=== PATIENT | male | born 1960 | race Caucasian/White ===

== ENCOUNTER 2018-11-18 09:48 | Inpatient (IN) ==
[~2018-11-18 09:48] MED LIST: ceFAZolin 1,000 MG, Sodium Chloride IRRigation 1,000 ML IR ONE
[2018-11-18] MEDS ORDERED: *HR* Remifentanil 2 MG VIAL IVP ONE (10:18)
[2018-11-18] MEDS ORDERED: Ondansetron 4 MG/2 ML VIAL ONE (10:18)
[2018-11-18] MEDS ORDERED: *HR* Succinylcholine 200 MG/10 ML VIAL IVP ONE (10:18)
[2018-11-18] MEDS ORDERED: *HR* Propofol 200 MG/20 ML VIAL IVP ONE (10:18)
[2018-11-18] MEDS ORDERED: *HR* FentaNYL (PF) 100 MCG/2 ML VIAL ONE (10:18)
[2018-11-18] MEDS ORDERED: Lidocaine -MPF 2% 2 ML VIAL ONE (10:18)
[2018-11-18] MEDS ORDERED: *HR* Midazolam HCl 2 MG/2 ML VIAL ONE (10:18)
[2018-11-18] MEDS ORDERED: Dexamethasone 4 MG/ML VIAL ONE (10:18)
[2018-11-18] MEDS ORDERED: *HR* Phenylephrine 10 MG/ML VIAL ONE (10:19)
[2018-11-18] MEDS ORDERED: *HR* Heparin 5,000 UNIT/ML VIAL ONE (10:19)
[2018-11-18] MEDS ORDERED: EPHEDrine 50 MG/ML VIAL ONE (10:19)
--- NOTE | 2018-11-18 10:35 | Anesthesia Evaluation PreOp ---
Date of Encounter: 11/18/18 Time of Encounter: 10:33 - Past History Planned Operation: R CEA Cardiac History: [place] (1996), HTN, Hyperlipidemia, Arrhythmia (a fib s/p multiple ablations), Cardiac Surgery (1996) Pulmonary History: JEB Dx (no diagnosed but stop-bang 6 (High risk for JEB)) SINGER BACK TENDER History: Other (karina carotid stenosis; no hx CVA; s/p L CEA) Other Medical History: Diabetes Type II (no insulin), Other (BMI 37) Anesthesia History: No Prior Anesthetic Complications Alcohol Use: none Drug use: none Medications and Allergies Aspirin [Lo-Dose Aspirin EC] 81 mg PO DAILY 10/31/18 [History] Cholecalciferol (D-3) [Vitamin D] 1,000 unit PO DAILY 10/31/18 [History] Flaxseed Oil [[place]-3 Flaxseed Oil] 1,000 mg PO TID 10/31/18 [History] Furosemide [Lasix] 20 mg PO DAILY 10/31/18 [History] Glimepiride [Amaryl] 4 mg PO DAILY 10/31/18 [History] Niacin [Niacor] 500 mg PO DAILY 10/31/18 [History] Pravastatin Sodium [Pravachol] 40 mg PO DAILY 10/31/18 [History] Spironolactone [Aldactone] 12.5 mg PO DAILY 10/31/18 [History] Vitamin E Acetate [Vitamin E] 400 unit PO DAILY 10/31/18 [History] Warfarin Sodium [Coumadin] 6 mg PO SUMOTUFRSA 10/31/18 [History] Carvedilol [Coreg] 25 mg PO BID 11/04/18 [History] Cinnamon Bark [Cinnamon] 500 mg PO DAILY 11/04/18 [History] Liraglutide [Victoza 2-Ruslan] 1.8 mg SQ DAILY 11/04/18 [History] Lisinopril/Hydrochlorothiazide [Zestoretic 20-12.5 mg Tablet] 1 tab PO DAILY 11/04/18 [History] Metformin HCl [Metformin HCl ER] 500 mg PO DAILY 11/04/18 [History] Multivitamin [One-Daily Multi-Vitamin] 1 tab PO DAILY 11/04/18 [History] Warfarin Sodium [Coumadin] 9 mg PO TH 11/04/18 [History] Allergy/AdvReac Type Severity Reaction Status Date / Time No Known Allergies Allergy Verified 11/04/18 13:04 - Meds/Allergy Pre-op Review Medications Reviewed: Yes Allergies Reviewed: Yes Beta Blockers on Current Med List: Yes If Beta Blockers taken, Date/Time (Last Dose taken): 11-18-18 coreg 8:30 Anesthesia Results - Labs Laboratory Tests 10/31/18 10/31/18 11/05/18 09:15 15:52 03:43 WBC 10.8 Hgb 11.3 L Hct 35.3 L Plt Count 182 PT 14.0 H INR 1.2 Sodium Potassium Chloride Carbon Dioxide BUN Creatinine Est GFR ( Amer) Est GFR (Non-Af Amer) BUN/Creatinine Ratio Glucose POC Glucose Est Mean Plasma Glucose 143 Hemoglobin A1c 6.6 H Calculated Osmolality 11/05/18 11/05/18 03:43 11:43 WBC Hgb Hct Plt Count PT INR Sodium 135 L Potassium 4.4 Chloride 103 Carbon Dioxide 22 L BUN 21 H Creatinine 1.11 Est GFR ( Amer) > 60 Est GFR (Non-Af Amer) > 60 BUN/Creatinine Ratio 19 Glucose 147 H POC Glucose 208 H Est Mean Plasma Glucose Hemoglobin A1c Calculated Osmolality 286 - Imaging EKG: report reviewed, image reviewed (Atrial fibrillation Ventricular premature complex Borderline low voltage, extremity leads Nonspecific T abnormalities, lateral leads) Anesthesia Exam Last Vital Signs Temp 97.6 F 11/18/18 10:10 Pulse 87 11/18/18 10:10 Resp 18 11/18/18 10:10 BP 129/79 11/18/18 10:10 Pulse Ox 95 11/18/18 10:10 Weight: 112 kg NPO (# of Hours): > 8 hrs - HEENT Pupil (Motor): Pupils equal, EOMI Mallampati: II Teeth: Normal Oral Opening: Greater than 3 - SINGER BACK TENDER LOC: Oriented - Cardiac Rhythm: Regular Murmur: None - Pulmonary Breath Sounds: bilateral Clear Respiratory Effort: Symmetrical Anesthesia Assess/Plan ASA Score: 3 Level of consciousness: Cooperative Anesthetic Plan: General Monitoring Plan: Standard Monitors, A-Line Recovery Plan: PACU
[2018-11-18] MEDS ORDERED: CeFAZolin Syr 2,000MG/20 ML 2,000 MG/20 ML SYRINGE IVPB ONE (10:37)
[2018-11-18] MEDS: Ringers Solution, Lactated 1,000 ML IVC SCH ×2 (10:39→13:10)
--- NOTE | 2018-11-18 10:49 | History & Physical Report ---
Date of Encounter: 11/18/18 Time of Encounter: 10:48 24 Hour HP Update - Instructions Instructions: If the History and Physical is less than 30 days old and was completed prior to A.M. admission and or procedure and has NOT been updated on calendar day of procedure please complete this update prior to performing procedure. - Update Patient reports changes in Medical Condition: No Changes in examination, assessment, or condition: No Changes in Medication: No Preop tests/diagnostics Reviewed: Yes Surgery Remains Indicated: Yes Consent for Planned Operative Procedure(s) Verified: Yes - Pre-Operative Checklist Preoperative Checklist Indicated: Yes Prophylactic Antibiotic Ordered: Yes Home Medications Include Beta Dagoberto: Yes Beta Dagoberto Taken Today (Day of Surgery): Yes Beta Dagoberto Taken Yesterday (Day Prior to Surgery): Yes Is VTE Prophylaxis Indicated?: Yes
[2018-11-18] MEDS ORDERED: Heparin 1,000 UNITS/500 mL 1,500 ML ONE (10:52)
[2018-11-18] MEDS ORDERED: Bupivacaine/EPI 1:200k 0.5%PF 10 ML VIAL ONE (10:53)
[2018-11-18] MEDS ORDERED: Lidocaine 1% 20 ML MDV ONE (10:53)
[2018-11-18] MEDS ORDERED: *HR* Labetalol 100 MG/20 ML MDV ONE (10:54)
[2018-11-18] MEDS ORDERED: NiCARdipine 2.5 MG/10 ML Syringe IVPB ONE (10:54)
[2018-11-18] MEDS ORDERED: Albuterol 2.5 MG/3 ML NEBULIZER IH ONE (10:56)
[2018-11-18] MEDS ORDERED: *HR* OxyCODONE Immed Rel 5 MG TABLET PO PRN ×2 (10:56→15:28)
[2018-11-18] MEDS ORDERED: *HR* Labetalol 20 MG/4 ML SYRINGE IVP PRN (10:56)
[2018-11-18] MEDS ORDERED: *HR* Midazolam HCl 5 MG/ML VIAL ONE (10:59)
[2018-11-18] MEDS ORDERED: Lidocaine -MPF 1% 5 ML AMPUL ONE (11:02)
[2018-11-18] MEDS ORDERED: *HR* PHENYLEPHRINE 1,000 MCG/10 ML SYRINGE IVP ONE ×2 (11:10→14:06)
[2018-11-18] MEDS ORDERED: *HR* Vasopressin 20 UNIT/ML VIAL ONE (11:34)
--- NOTE | 2018-11-18 11:44 | Anesthesia Procedures ---
Date of Encounter: 11/18/18 Time of Encounter: 11:00 Procedures: Anesthesia - Arterial Line Consent obtained: written consent Time out performed: Yes Sedation: Versed (mg): 2 Sedation: Fentanyl (mcg): 100 Supplemental Oxygen via Nasal Cannula (L/min): 2 Local Anesthetic: Lidocaine 1% Amount of Anesthetic used (mls): 1 Size (Gauge): 20 Length (inches): 1 3/4 Technique Used: sterile prep, guide wire technique Post-Procedure: line taped into place, dry sterile dressing placed Patient tolerated procedure: well, no complications Complications: none Site: Radial R Vitals: Last Vital Signs Temp 97.6 F 11/18/18 10:10 Pulse 83 11/18/18 11:05 Resp 16 11/18/18 11:05 BP 131/92 11/18/18 11:05 Pulse Ox 97 11/18/18 11:05
--- NOTE | 2018-11-18 14:20 | Operative Note ---
Date of procedure: 11/18/18 Pre-op diagnosis: right carotid stenosis Post-op diagnosis: same Procedure: right carotid endarterectomy with 8 Fr shunt and bovine patch angioplasty Complications: 0 Anesthesia: GETA Surgeon: Marshall García Was there an assistant manager/embalmer present: No Estimated blood loss (cc): 100 Specimen: 0 Condition: stable Disposition: PACU Procedure in Detail: History Jose M Fam is a 58-year-old white male who was identified as having abnormal carotid duplex scan. This then led to a carotid angiogram. The angiogram demonstrated high-grade bilateral carotid stenoses. The patient had undergone a left carotid endarterectomy approximately 2 weeks ago. He now returns for correction of the severe lesion on the right side. Procedure After informed consent was obtained the patient was taken to the operating room. General endotracheal anesthesia was established under arterial line pressure guide. The right neck was then sterilely prepped and draped. An oblique incision was then made parallel to the anterior border of the sternocl eidomastoid muscle. Dissection was carried down to the carotid sheath. Controls obtained of the arterial structures of the carotid sheath. The hypoglossal nerve was identified and preserved during this dissection. 5000 units heparin were then administered intravenously. After 3 minute delay the vessels were clamped with the internal carotid artery clamped first. Using an 11 blade knife and Rodriguez scissors the artery was opened at the distal common carotid and proximal internal carotid levels. An 8-Malay shunt was then inserted atraumatically. Patency of the shunt was confirmed by the severe intraoperative Doppler. Evaluation of the plaque revealed a very irregular plaque with multiple areas of ulceration. In addition there was chronic thrombus present. The thrombus was adherent and there is no loose material. The endarterectomy was then begun at the distal common carotid artery. Dissection was then made circumferentially. The dissection plane was then carried proximally and distally. The orifice of the external carotid artery was also endarterectomized. The endpoint on the internal carotid artery was smooth and no tacking sutures were necessary. After inspection of the bed of the vessel a bovine pericardial patch angioplasty was then performed using 6-0 Prolene sutures. Leaving a small space open on the suture line the shunt was clamped divided and removed. The final few sutures were then placed. The internal was allowed to back flush and then was reclamped. Then the external and common were opened and finally the internal was reopened. The patient had n o hemodynamic distress with this maneuver. Excellent Doppler signals were identified throughout the carotid system. The wound was then irrigated. Hemostasis was achieved. A superficial cervical block using half percent Marcaine was performed. The wound was then closed in layers using absorbable suture. There were no intraoperative complications. The patient awoke from his anesthetic well. He was neurologically intact. He was then transported from the operating room to the recovery room in stable condition.
--- NOTE | 2018-11-18 15:05 | Anesthesia Evaluation Post Op ---
Date of Encounter: 11/18/18 Time of Encounter: 15:00 - Vital Signs Vital Signs: Vital Signs/O2 Sat/Glucose, Most Current Temp Pulse Resp BP Pulse Ox 11/18/18 14:53 99.2 F 86 12 125/79 96 11/18/18 14:43 83 12 116/89 95 11/18/18 14:33 81 12 109/73 96 11/18/18 14:23 98.7 F 83 16 105/35 93 11/18/18 11:05 83 16 131/92 97 - Lungs Lungs: Clear Ascult./Percussion - Airway Airway: Non-obstructed - Cardiovascular Regular Rate - Mental Status Mental Status: Alert & Oriented, Answers Appropriately - Pain Pain Scale: 0 - Nausea Vomiting Nausea Vomiting: Not Present - Hydration Hydration: Ice chips - Discharge PostOp Status: Transfer Patient to floor
[2018-11-18] MEDS ORDERED: FLAXSEED OIL 1000 MG PO SCH (15:28)
[2018-11-18] MEDS ORDERED: Naloxone 0.4 MG/ML INJ IVP PRN (15:28)
[2018-11-18] MEDS ORDERED: *HR* HYDROcodone/Acet 5/325 mg TABLET PO PRN (15:28)
[2018-11-18] MEDS ORDERED: Acetaminophen 325 MG TABLET PO PRN (15:28)
[2018-11-18] MEDS ORDERED: Ondansetron 4 MG/2 ML VIAL IVP PRN (15:28)
[2018-11-19 07:12] LABS: Basophils % 0.5 %; Eosinophils # 0.2 K/mcL (0.0-0.6); Hematocrit 33.6 % (37.5-50.1); Hemoglobin 10.9 g/dL (12.9-16.9); Immature Granulocytes % 0.4 % (0-4); Lymphocytes # 0.7 K/mcL (0.6-4.6); Mean Corpuscular HGB Conc 32.4 g/dL (31.6-35.5); Mean Corpuscular Hemoglobin 28.8 pg (28.0-33.3); Mean Corpuscular Volume 88.9 fL (83.0-100.0); Mean Platelet Volume 10.3 fL (9.4-12.4); Monocytes % 12.3 %; Neutrophils # 6.3 K/mcL (1.6-8.9); Platelet Count 198 K/mcL (140-400); Red Blood Count 3.78 M/mcL (4.19-5.50); Red Cell Distribution Width 16.7 % (11.5-14.5); Segmented Neutrophils % 76.8 %
[2018-11-19 07:18] LABS: BUN/Creatinine Ratio 17 (6-26); Blood Urea Nitrogen 19 mg/dL (6-20); Calcium 9.2 mg/dL (8.6-10.3); Carbon Dioxide 26 mEq/L (23-29); Chloride 104 mEq/L (98-107); Glucose 100 mg/dL (70-105); Osmolality,Calculated 286 (280-300); Potassium 3.9 mEq/L (3.5-5.1); Sodium 137 mEq/L (136-145); eGFR For Non-African Americans > 60 (> 60)
[2018-11-19] MEDS ORDERED: *HR* Metformin 500 MG TABLET PO SCH (08:00)
[2018-11-19] MEDS ORDERED: Liraglutide [Victoza 2-Pak] 1.8 MG SQ SCH (09:00)
[2018-11-19] MEDS ORDERED: NON-FORMULARY MEDICATION 1 EACH EACH (Cinnamon Bark [Cinnamon] 500 MG) PO SCH (09:00)
[2018-11-19] MEDS ORDERED: Lisinopril-HCTZ 20-12.5mg TABLET PO SCH (09:00)
[2018-11-19] MEDS ORDERED: Cholecalciferol (D-3) 1,000 UNIT TABLET PO SCH (09:00)
[2018-11-19] MEDS ORDERED: Spironolactone 25 MG TABLET PO SCH (09:00)
[2018-11-19] MEDS ORDERED: Furosemide 20 MG TABLET PO SCH (09:00)
[2018-11-19] MEDS ORDERED: *HR* Glimepiride 4 MG TABLET PO SCH (09:00)
[2018-11-19] MEDS ORDERED: Aspirin Enteric Coated 81 MG Tablet PO SCH (09:00)
[2018-11-19] MEDS ORDERED: Multivit/Ca/Min/Fe/FA 1 TAB TABLET PO SCH (09:00)
[2018-11-19] MEDS ORDERED: Niacin (24 HR) 500 MG TAB.ER.24H PO SCH (09:00)
--- NOTE | 2018-11-19 11:32 | Discharge Summary ---
Date of Encounter: 11/19/18 Time of Encounter: 11:30 - Discharge Diagnosis (1) Bilateral carotid artery disease Priority: Primary Status: Acute Comments: Patient has known bilateral carotid artery disease. He had undergone left carotid endarterectomy approximately 2 weeks ago. Patient now returns because of severe stenosis in the right carotid. Patient then underwent a right carotid endarterectomy yesterday without incident. Qualified Code(s): I65.23 - Occlusion and stenosis of bilateral carotid arteries (2) Diabetes Priority: Secondary Status: Chronic Comments: Patient has chronic diabetes. Qualifiers: Diabetes mellitus type: type 2 Diabetes mellitus retail field merchandiser insulin use: unspecified retail field merchandiser insulin use status Diabetes mellitus complication status: with unspecified complications Qualified Code(s): E11.8 - Type 2 diabetes mellitus with unspecified complications (3) Hypertension Priority: Secondary Status: Chronic Comments: Patient has chronic hypertension Qualifiers: Hypertension type: essential hypertension (4) Afib Priority: Secondary Status: Chronic Comments: Patient has chronic atrial fibrillation Qualifiers: Atrial fibrillation type: chronic Qualified Code(s): I48.2 - Chronic atrial fibrillation - Hospital Course Hospital course: Mr. Fam is a 58 year old male With known severe carotid artery disease. He was identified on duplex scan to have abnormal findings. This then led to an angiogram which demonstrated critical stenosis of the bilateral internal carotid arteries. Approximately 2 weeks ago he had undergone a left carotid endarterectomy. He then return yesterday for the right carotid endarterectomy. This was performed under general endotracheal anesthesia. The patient had no periprocedural complications. He was found to have a critical stenosis with chronic thrombus present in the plaque. The patient had an uneventful recovery. The patient was felt fit for discharge on the afternoon of postoperative day #1. Instructions were given in regards to his diet and activities and medications as well as wound care. All questions were answered. - Time Spent with Patient Total time spent providing and/or coordinating discharge services: - Discharge Medications Home Medications: Aspirin [Lo-Dose Aspirin EC] 81 mg PO DAILY 10/31/18 [History] Cholecalciferol (D-3) [Vitamin D] 1,000 unit PO DAILY 10/31/18 [History] Flaxseed Oil [[place]-3 Flaxseed Oil] 1,000 mg PO TID 10/31/18 [History] Furosemide [Lasix] 20 mg PO DAILY 10/31/18 [History] Glimepiride [Amaryl] 4 mg PO DAILY 10/31/18 [History] Niacin [Niacor] 500 mg PO DAILY 10/31/18 [History] Spironolactone [Aldactone] 12.5 mg PO DAILY 10/31/18 [History] Vitamin E Acetate [Vitamin E] 400 unit PO DAILY 10/31/18 [History] Warfarin Sodium [Coumadin] 6 mg PO SUMOTUFRSA 10/31/18 [History] Carvedilol [Coreg] 25 mg PO BID 11/04/18 [History] Cinnamon Bark [Cinnamon] 500 mg PO DAILY 11/04/18 [History] Liraglutide [Victoza 2-Ruslan] 1.8 mg SQ DAILY 11/04/18 [History] Lisinopril/Hydrochlorothiazide [Zestoretic 20-12.5 mg Tablet] 1 tab PO DAILY 11/04/18 [History] Metformin HCl [Metformin HCl ER] 500 mg PO DAILY 11/04/18 [History] Multivitamin [One-Daily Multi-Vitamin] 1 tab PO DAILY 11/04/18 [History] Warfarin Sodium [Coumadin] 9 mg PO TH 11/04/18 [History] Atorvastatin [Lipitor] 40 mg PO HS 11/18/18 [History] Allergies/Adverse Reactions: Allergy/AdvReac Type Severity Reaction Status Date / Time No Known Allergies Allergy Verified 11/18/18 10:47 Date of admission: 11/18/18 15:09 Primary care physician: PCP NONE Consults: None Procedure(s) Performed: Right carotid endarterectomy with bovine pericardial patch angioplasty Discharging clinician: Marshall García Anticipated date of discharge: 11/19/18 Exam Vital Signs, Last 4 Hours Pulse Resp Pulse Ox 11/19/18 10:30 87 20 97 General: Present: Conversant, No Apparent Distress, Well developed, Well nourished HEENT: Present: Atraumatic, Normocephaly, Trachea midline Neck: Absent: JVD Cardiac: Present: Normal S1 and S2, No Murmur. Absent: Reg Rate and Rhythm Lungs: Present: Normal Breath Sounds Neuro: Present: Alert and responsive, No focal deficits noted, Cranial nerves grossly intact, Motor nerves grossly intact, Sensory nerves grossly intact Vascular: Present: Surgical incisions (Right neck surgical incision is clean and dry.) Skin: Present: No rashes noted on visualized skin - Patient Status Disposition: Home, Self-Care Condition: Good Functional capacity at discharge: independent ambulation Overall status at discharge: patient is progressing back to baseline - Discharge Instructions Follow Up With: Walter Pichardo MD [Partnered Physician] - 11/26/18 9:15 am (Per [facility] please show up for your appointment or cancel. Thanks) Marshall García MD [Partnered Physician] - 12/17/18 8:40 am Additional Instructions: Use ice pack on right neck incision for the next 2 days. Keep right neck incision dry for a total of 5 days following surgery. No lifting greater than 10 pounds. No automobile driving. No manual labor. Patient may walk inside and outside as tolerated. Patient may use stairs as tolerated. Use incentive spirometer 10 times an hour while awake at home. After 2 weeks discard the incentive spirometer. Resume usual home medications. Begin Coumadin therapy tomorrow afternoon. - Diet and Activity Activity: increase activity as tolerated Diet: diabetic diet
[2018-11-19 11:39] VITALS: BP 109/51
== END 2018-11-19 13:28 | disposition home or self-care (01) | DRG 24 ==
LOC: SAMDAY 09:48 → 2NNU 15:09
PROVIDERS: ADMIT Surgery Vascular Surgery; ATTEND Surgery Vascular Surgery